=== PATIENT | female | born 1990 | race Caucasian/White ===

== ENCOUNTER 2017-12-04 13:26 | Emergency (ER) | payer SELFPAY ==
--- NOTE | 2017-12-04 14:18 | RAD REPORT ---
EXAM DESCRIPTION: Eileen Tovar (2 Views)12/04/2017 2:04 pm CLINICAL HISTORY: Chest pain COMPARISON: none FINDINGS: The lungs appear clear of acute infiltrate. The heart is normal size IMPRESSION: No acute abnormalities displayed
--- NOTE | 2017-12-04 14:47 | EKG ---
Test Date: 2017-12-04 Test Time: 13:44:33 Marketing Communications Manager: OSIEL MEASUREMENT RESULTS: Intervals: Rate: 70 SD: 118 QRSD: 88 QT: 386 QTc: 416 [place]: P: 26 SD: 118 QRS: 18 T: 10 INTERPRETIVE STATEMENTS: Normal sinus rhythm Normal ECG No previous ECG available for comparison Electronically Signed On 12-04-17 14:46:36 CDT by Nickolas Chacon
--- NOTE | 2017-12-04 14:52 | ER ---
Nurse's Notes [facility] Name: Diamond Barakat Age: 27 yrs Sex: Female : 1990 Arrival Date: 12/04/2017 Time: 13:29 Bed 27 Private MD: Diagnosis: Chest pain on breathing Presentation: 12/04 13:35 Presenting complaint: Patient states: for the last few days it has hurt in my chest but la1 only when I move or take a deep breath. Transition of care: patient was not received from another setting of care. Onset of symptoms was December 04, 2017. Care prior to arrival: None. 13:35 Method Of Arrival: Ambulatory la1 13:35 Acuity: TELMA 4 la1 Historical: - Allergies: 13:35 Ibuprofen; la1 13:35 Macrobid; la1 13:35 PENICILLINS; la1 - PMHx: 13:35 UTI; la1 - Immunization history:: Adult Immunizations up to date. - Social history:: Smoking status: Patient/guardian denies using tobacco. Screenin:38 Abuse screen: Denies threats or abuse. Denies injuries from another. Nutritional aj screening: No deficits noted. Tuberculosis screening: No symptoms or risk factors identified. Fall Risk None identified. Assessment: 13:38 General: Appears in no apparent distress. comfortable, Behavior is calm, cooperative, aj appropriate for age. Pain: Complains of pain in chest Aggravated by exercise, increased activity, repositioning. Neuro: Level of Consciousness is awake, alert, obeys commands, Oriented to person, place, time, situation. Respiratory: Airway is patent Respiratory effort is even, unlabored, Respiratory pattern is regular, symmetrical. Derm: Skin is intact, is healthy with good turgor, Skin is pink, warm \T\ dry. normal. Musculoskeletal: Range of motion: intact in all extremities. Vital Signs: 13:35 BP 144 / 100; Pulse 74; Resp 16; Temp 97.6; Pulse Ox 100% on R/A; Weight 102.06 kg; la1 Height 5 ft. 4 in. (162.56 cm); 14:56 BP 141 / 99; Pulse 72; Resp 18; Pulse Ox 99% on R/A; aj 13:35 Body Mass Index 38.62 (102.06 kg, 162.56 cm) la1 ED Course: 13:29 Patient arrived in ED. sb2 13:33 Kell[facility]-C [facility] kb 13:33 Edenilson Dillon MD is Attending Physician. kb 13:35 Triage completed. la1 13:36 Arm band placed on left wrist. la1 13:37 Earlene Tomlin, RN is Primary Nurse. aj 13:38 No provider procedures requiring assistance completed. aj 13:50 EKG done, by driver service technician. reviewed by Edenilson Dillon MD. tc 14:56 Patient has correct armband on for positive identification. aj 14:56 Patient did not have IV access during this emergency room visit. aj Administered Medications: No medications were administered Outcome: 14:52 Discharge ordered by MD. kb 14:56 Discharged to home ambulatory. aj 14:56 Condition: good 14:56 Discharge instructions given to patient, Instructed on discharge instructions, follow up and referral plans. Demonstrated understanding of instructions, follow-up care. 14:58 Patient left the ED. aj Signatures: Kellie Taylor FNP-C SITECORE DEVELOPER-Ckb Earlene Tomlin, RN RN Carlene Thomas, restoration ecologist EKG Ttc Gato Fajardo RN RN la1 Angelina Mckeon sb2
--- NOTE | 2017-12-04 14:53 | EDPHYS ---
Physician Documentation [facility] Name: Diamond Barakat Age: 27 yrs Sex: Female : 1990 Arrival Date: 12/04/2017 Time: 13:29 Bed 27 Private MD: ED Physician Edenilson Dillon HPI: 12/04 14:50 This 27 yrs old Female presents to ER via Ambulatory with complaints of SHARP kb CHEST PAIN WITH MOVEMENT AND DEEP BREATHS. 14:50 The patient or guardian reports chest pain that is located primarily in the substernal kb area, anterior chest wall, left. The pain does not radiate. Associated signs and symptoms: Pertinent positives: None. The chest pain is described as aching. Duration: The patient or guardian reports multiple episodes, that are intermittent. Modifying factors: The symptoms are alleviated by nothing. the symptoms are aggravated by cough, deep breath, movement. Severity of pain: At its worst the pain was mild moderate in the emergency department the pain is unchanged. The patient has not experienced similar symptoms in the past. The patient has not recently seen a physician. Pt reports pain to chest with cough, sneeze, deep breath or movement. States she has been working out lately so wasn't sure if that is the cause or not. Historical: - Allergies: 13:35 Ibuprofen; la1 13:35 Macrobid; la1 13:35 PENICILLINS; la1 - PMHx: 13:35 UTI; la1 - Immunization history:: Adult Immunizations up to date. - Social history:: Smoking status: Patient/guardian denies using tobacco. ROS: 14:49 Constitutional: Negative for fever, chills, and weight loss, Respiratory: Negative for kb shortness of breath, cough, wheezing, and pleuritic chest pain, Abdomen/GI: Negative for abdominal pain, nausea, vomiting, diarrhea, and constipation, Back: Negative for injury and pain, : Negative for injury, bleeding, discharge, and swelling, MS/Extremity: Negative for injury and deformity, Skin: Negative for injury, rash, and discoloration, Neuro: Negative for headache, weakness, numbness, tingling, and seizure. 14:49 Cardiovascular: Positive for chest pain, with cough, with movement, Negative for edema, orthopnea, palpitations, paroxysmal nocturnal dyspnea. Exam: 14:49 Constitutional: This is a well developed, well nourished patient who is awake, alert, kb and in no acute distress. Head/Face: Normocephalic, atraumatic. Chest/axilla: Normal chest wall appearance and motion. Nontender with no deformity. No lesions are appreciated. Cardiovascular: Regular rate and rhythm with a normal S1 and S2. No gallops, murmurs, or rubs. Normal PMI, no JVD. No pulse deficits. Respiratory: Lungs have equal breath sounds bilaterally, clear to auscultation and percussion. No rales, rhonchi or wheezes noted. No increased work of breathing, no retractions or nasal flaring. Abdomen/GI: Soft, non-tender, with normal bowel sounds. No distension or tympany. No guarding or rebound. No evidence of tenderness throughout. Back: No spinal tenderness. No costovertebral tenderness. Full range of motion. Skin: Warm, dry with normal turgor. Normal color with no rashes, no lesions, and no evidence of cellulitis. MS/ Extremity: Pulses equal, no cyanosis. Neurovascular intact. Full, normal range of motion. Neuro: Awake and alert, GCS 15, oriented to person, place, time, and situation. Cranial nerves II-XII grossly intact. Motor strength 5/5 in all extremities. Sensory grossly intact. Cerebellar exam normal. Normal gait. Vital Signs: 13:35 BP 144 / 100; Pulse 74; Resp 16; Temp 97.6; Pulse Ox 100% on R/A; Weight 102.06 kg; la1 Height 5 ft. 4 in. (162.56 cm); 14:56 BP 141 / 99; Pulse 72; Resp 18; Pulse Ox 99% on R/A; aj 13:35 Body Mass Index 38.62 (102.06 kg, 162.56 cm) la1 MDM: 13:36 Patient medically screened. kb 14:48 Data reviewed: vital signs, nurses notes. Data interpreted: Pulse oximetry: on room air kb is 100 %. Interpretation: normal. Counseling: I had a detailed discussion with the patient and/or guardian regarding: the historical points, exam findings, and any diagnostic results supporting the discharge/admit diagnosis, lab results, radiology results, the need for outpatient follow up, a family practitioner, to return to the emergency department if symptoms worsen or persist or if there are any questions or concerns that arise at home. 12/04 13:36 Order name: Chest Pa And Lat (2 Views) XRAY kb 12/04 14:19 Order name: RAD; Complete Time: 14:25 EDMS 12/04 13:36 Order name: EKG; Complete Time: 13:37 kb 12/04 13:36 Order name: EKG - Nurse/Tech; Complete Time: 14:03 kb Administered Medications: No medications were administered Disposition: 17:52 Co-signature as Attending Physician, Edenilson Dillon MD. rn Disposition: 12/04/17 14:52 Discharged to Home. Impression: Chest pain on breathing. - Condition is Stable. - Discharge Instructions: Costochondritis, [id number]. - Medication Reconciliation Form, Thank You Letter, Antibiotic Education, Prescription Opioid Use form. - Follow up: Emergency Department; When: As needed; Reason: Worsening of condition. Follow up: Private Physician; When: 2 - 3 days; Reason: Recheck today's complaints, Continuance of care, Re-evaluation by your physician. Signatures: Dispatcher [employer] EDUT Kellie Taylor, SPORTS BETTING MANAGER-C SPORTS BETTING MANAGER-Earlene Yancey, RN Edenilson Mahmood MD MD rn Attema, Lee, RN RN la1
[2017-12-04 15:06] VITALS: TEMP 97.6
[2017-12-04 15:07] VITALS: BP 141/99; O2SAT 99
== END 2017-12-04 14:58 | disposition home or self-care (01) ==
LOC: ER 13:26
DX: R07.1 Chest pain on breathing (principal); Z88.0 Allergy status to penicillin; Z88.6 Allergy status to analgesic agent; Z88.8 Allergy status to other drugs, medicaments and biological substances
CPT/HCPCS: 71046; 93005; 99283

== ENCOUNTER 2017-12-19 | Emergency (ER) | payer SELFPAY ==
--- NOTE | 2017-12-19 07:27 | ER ---
Nurse's Notes [facility] Name: Diamond Barakat Age: 27 yrs Sex: Female : 1990 Arrival Date: 12/19/2017 Time: 06:47 Bed 13 Private MD: Diagnosis: Acute upper respiratory infection, unspecified Presentation: 12/19 07:00 Presenting complaint: Patient states: sore throat, cough and R ear pain x 5 days. ss Transition of care: patient was not received from another setting of care. Onset of symptoms was December 14, 2017. Care prior to arrival: None. 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 - Social history:: Smoking status: Patient/guardian denies using tobacco. - Family history:: pertinent for. - Hospitalizations: : No recent hospitalization is reported. Screenin:00 Abuse screen: Denies threats or abuse. Nutritional screening: No deficits noted. rb1 Tuberculosis screening: No symptoms or risk factors identified. Fall Risk None identified. Assessment: 07:00 General: Appears in no apparent distress. comfortable, obese, Behavior is calm, rb1 cooperative. Pain: Complains of pain in throat Pain currently is 4 out of 10 on a pain scale. Neuro: Level of Consciousness is awake, alert, obeys commands, Oriented to person, place, time, situation. Cardiovascular: Capillary refill < 3 seconds is brisk in bilateral fingers. Respiratory: Airway is patent Respiratory effort is even, unlabored, Respiratory pattern is regular, symmetrical, Breath sounds are clear bilaterally. GI: No signs and/or symptoms were reported involving the gastrointestinal system. : No signs and/or symptoms were reported regarding the genitourinary system. EENT: Throat is reddened. Derm: Skin is pink, warm \T\ dry. Vital Signs: 07:08 BP 125 / 95; Pulse 83; Resp 14; Temp 98.0(O); Pulse Ox 99% on R/A; Weight 101.6 kg; Height 5 ft. 4 in. (162.56 cm); Pain 5/10; 07:08 Body Mass Index 38.45 (101.60 kg, 162.56 cm) ED Course: 06:47 Patient arrived in ED. 06:59 Shi Hearn [facility] ka 06:59 Moses Smith MD is Attending Physician. kav 07:00 Patient has correct armband on for positive identification. Pulse ox on. NIBP on. rb1 07:07 Triage completed. ss 07:08 Arm band placed on right wrist. 07:42 Ilana Crain, RN is Primary Nurse. rb1 07:46 No provider procedures requiring assistance completed. Patient did not have IV access rb1 during this emergency room visit. Administered Medications: No medications were administered Outcome: 07:26 Discharge ordered by MD. kav 07:46 Discharged to home ambulatory. rb1 07:46 Condition: stable 07:46 Discharge instructions given to patient, Instructed on discharge instructions, follow up and referral plans. medication usage, Demonstrated understanding of instructions, follow-up care, medications, Prescriptions given X 2. 07:46 Patient left the ED. rb1 Signatures: Shi Hearn FNP FNP [facility] Sabi Vidal Susu Daigle RN RN Ilana Crain, RN RN rb1 Corrections: (The following items were deleted from the chart) 07:54 07:53 Patient left the ED. rb1 rb1
--- NOTE | 2017-12-19 07:27 | EDPHYS ---
Physician Documentation [facility] Name: Diamond Barakat Age: 27 yrs Sex: Female : 1990 Arrival Date: 12/19/2017 Time: 06:47 Bed 13 Private MD: ED Physician Moses Smith HPI: 12/19 07:15 This 27 yrs old Female presents to ER via Ambulatory with complaints of Sore kav Throat, Cough, Ear Pain. 07:20 The patient presents with sore throat. The patient describes throat pain as dry, kav scratchy. Severity of symptoms: At their worst the symptoms were very mild, just prior to arrival, in the emergency department the symptoms are unchanged. Modifying factors: The symptoms are alleviated by nothing, the symptoms are aggravated by nothing. Associated signs and symptoms: Pertinent positives: cough. The patient has not experienced similar symptoms in the past. The patient has not recently seen a physician. 07:21 Onset: The symptoms/episode began/occurred 5 day(s) ago. kav 07:24 Associated signs and symptoms: Pertinent negatives chest pain, chills, dysphagia, kav fever, headache, nausea, rhinorrhea, shortness of breath, vomiting. 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 - Social history:: Smoking status: Patient/guardian denies using tobacco. - Family history:: pertinent for. - Hospitalizations: : No recent hospitalization is reported. ROS: 07:21 Constitutional: Negative for fever, chills, and weight loss, Eyes: Negative for injury, kav pain, redness, and discharge, Neck: Negative for injury, pain, and swelling, Cardiovascular: Negative for chest pain, palpitations, and edema, Abdomen/GI: Negative for abdominal pain, nausea, vomiting, diarrhea, and constipation, Back: Negative for injury and pain, : Negative for injury, bleeding, discharge, and swelling, MS/Extremity: Negative for injury and deformity, Skin: Negative for injury, rash, and discoloration, Neuro: Negative for headache, weakness, numbness, tingling, and seizure, Psych: Negative for depression, anxiety, suicide ideation, homicidal ideation, and hallucinations, Allergy/Immunology: Negative for hives, rash, and allergies, Endocrine: Negative for neck swelling, polydipsia, polyuria, polyphagia, and marked weight changes, Hematologic/Lymphatic: Negative for swollen nodes, abnormal bleeding, and unusual bruising. 07:21 ENT: Positive for sore throat. 07:21 Respiratory: Positive for cough, with no reported sputum. Exam: 07:21 Constitutional: This is a well developed, well nourished patient who is awake, alert, kav and in no acute distress. Head/Face: Normocephalic, atraumatic. Eyes: Pupils equal round and reactive to light, extra-ocular motions intact. Lids and lashes normal. Conjunctiva and sclera are non-icteric and not injected. Cornea within normal limits. Periorbital areas with no swelling, redness, or edema. Neck: Trachea midline, no thyromegaly or masses palpated, and no cervical lymphadenopathy. Supple, full range of motion without nuchal rigidity, or vertebral point tenderness. No Meningismus. Chest/axilla: Normal chest wall appearance and motion. Nontender with no deformity. No lesions are appreciated. Cardiovascular: Regular rate and rhythm with a normal S1 and S2. No gallops, murmurs, or rubs. Normal PMI, no JVD. No pulse deficits. Respiratory: Lungs have equal breath sounds bilaterally, clear to auscultation and percussion. No rales, rhonchi or wheezes noted. No increased work of breathing, no retractions or nasal flaring. Abdomen/GI: Soft, non-tender, with normal bowel sounds. No distension or tympany. No guarding or rebound. No evidence of tenderness throughout. Back: No spinal tenderness. No costovertebral tenderness. Full range of motion. Skin: Warm, dry with normal turgor. Normal color with no rashes, no lesions, and no evidence of cellulitis. MS/ Extremity: Pulses equal, no cyanosis. Neurovascular intact. Full, normal range of motion. Neuro: Awake and alert, GCS 15, oriented to person, place, time, and situation. Cranial nerves II-XII grossly intact. Motor strength 5/5 in all extremities. Sensory grossly intact. Cerebellar exam normal. Normal gait. Psych: Awake, alert, with orientation to person, place and time. Behavior, mood, and affect are within normal limits. 07:21 ENT: Posterior pharynx: Tonsils: bilaterally enlarged, with erythema. Vital Signs: 07:08 BP 125 / 95; Pulse 83; Resp 14; Temp 98.0(O); Pulse Ox 99% on R/A; Weight 101.6 kg; ss Height 5 ft. 4 in. (162.56 cm); Pain 5/10; 07:08 Body Mass Index 38.45 (101.60 kg, 162.56 cm) ss MDM: 06:59 Patient medically screened. kav 07:21 Data reviewed: vital signs, nurses notes. kav Administered Medications: No medications were administered Disposition: 12/19/17 07:26 Discharged to Home. Impression: Acute upper respiratory infection, unspecified. - Condition is Stable. - Discharge Instructions: Upper Respiratory Infection, Adult. - Prescriptions for Zithromax Z- Ivan 250 mg Oral Tablet - take 1 tablet by ORAL route as directed for 5 days Day 1 - take two (2) tablets one time. Day 2, 3, 4 , 5 take one (1) tablet once daily.; 6 tablet. Medrol (Ivan) 4 mg Oral Tablets, Dose Pack - take 1 tablet by ORAL route as directed - follow package instructions; 1 packet. - Medication Reconciliation Form, Thank You Letter, Antibiotic Education, Prescription Opioid Use form. - Follow up: Private Physician; When: 2 - 3 days; Reason: If symptoms return, Recheck today's complaints, Continuance of care, Re-evaluation by your physician. - Problem is new. - Symptoms are unchanged. Addendum: 12/21/2017 01:38 Co-signature as Attending Physician, Moses Smith MD I agree with the assessment and t w4 plan of care. Signatures: Shi Hearn, MACHINE EGG WASHER MACHINE EGG WASHER Susu Manuel RN RN ss Barber, Rebecca, Moses Kline RN, MD MD tw4 Corrections: (The following items were deleted from the chart) 12/19 07:22 07:20 Onset: The symptoms/episode began/occurred acutely, 1 day(s) ago, jessica lopez
== END 2017-12-19 07:53 | disposition home or self-care (01) ==
CPT/HCPCS: 99283